=== PATIENT | female | born 1940 | race Caucasian/White ===

== ENCOUNTER 2023-01-18 05:28 | Day surgery (SDC) | payer OTHER, BC ==
[2023-01-16 15:00] VITALS: BMI 25.1
[~2023-01-18 05:28] MED LIST: IOHEXOL 180 MG/1 ML ML IJ ONE; LIDOCAINE HCL 1% PRESERVATIVE FREE - 30ML VIAL IJ ONE
[2023-01-18 07:03] VITALS: RESP 20
[2023-01-18] MEDS ORDERED: LIDOCAINE HCL/PF 1% SDV 5ML VIAL ONE (07:28)
[2023-01-18] MEDS ORDERED: DEXAMETHASONE SOD PHOSPHATE 10 MG/1 ML VIAL ONE (07:28)
[2023-01-18] MEDS ORDERED: DEXAMETHASONE SOD PHOSPHATE 10 MG/1 ML VIAL IM ONE (09:35)
[2023-01-18] MEDS ORDERED: IOHEXOL 180 MG/1 ML ML IJ ONE (09:35)
[2023-01-18] MEDS ORDERED: LIDOCAINE HCL 1% PRESERVATIVE FREE - 30ML VIAL IJ ONE (09:35)
[2023-01-18 10:56] VITALS: BP 168/62; PULSE 66; TEMP 97.5
[2023-01-18] MEDS ORDERED: ACETAMINOPHEN 500 MG TABLET (FP) PO PRN (14:43)
== END 2023-01-18 10:20 | disposition home or self-care (01) ==
LOC: JASU-SURG 05:28
PROVIDERS: ATTEND Pain Medicine Pain Medicine
PROC: 3E0R3BZ Introduction of Anesthetic Agent into Spinal Canal, Percutaneous Approach (ICD-10-PCS; 2023-01-18)
PROC: 3E0R33Z Introduction of Anti-inflammatory into Spinal Canal, Percutaneous Approach (ICD-10-PCS; principal; 2023-01-18 08:45)
DX: M54.16 Radiculopathy, lumbar region (principal)
CPT/HCPCS: 76000-TC-FY; J1100